=== PATIENT | female | born 1985 ===

== ENCOUNTER 2025-05-03 07:00 | Inpatient (IN) | payer OTHER ==
[~2025-05-03] VITALS: Ht 154.9 cm; Wt 57.6 kg
[2025-05-03 08:50] LABS: BASO % 0.7 % (0.1-1.2); EOS # 0.12 (0.04-0.54); EOS % 1.1 % (0.7-7.0); LYMPH # 1.65 (1.18-3.74); LYMPH % 15.8 % (19.3-53.1); MEAN PLATELET VOLUME 9.90 fl (9.4-12.4); MONO # 0.83 (0.24-0.82); MONO % 7.9 % (4.7-12.5); NEUT # 7.72 (1.56-6.13); NEUT % 73.9 % (34.0-71.1); RED CELL DISTRIBUTION WIDTH 14.8 % (11.6-14.4)
[2025-05-03] MEDS ORDERED: PRENATABS FA T1 EACH PO (08:55)
[2025-05-03 09:11] LABS: INR < 0.93
[2025-05-03 09:33] LABS: ALT/SGPT 23.0 U/L (12-78); AST/SGOT 17.0 U/L (15-37); BILIRUBIN TOTAL 0.34 mg/dL (0.3-1.2); BUN CREA RATIO 15.0 (7.0-25.0); CREATININE SERUM 0.62 mg/dL (0.55-1.02); GFR 108.31; GLOBULINA 4.5 G/DL (2.4-3.5); GLUCOSE FASTING 78.0 mg/dL (65-100); OSMOLALITY SERUM 279.0 MOSM/KG (275-295)
[2025-05-10 05:16] VITALS: BP 97/65
[2025-05-10] MEDS ORDERED: MACROBID 100 M100 MG PO (07:43)
[2025-05-10] MEDS ORDERED: CEFAZOLIN SODIUM 1,000 MG VIAL IV ONE (08:00)
[2025-05-10] MEDS ORDERED: RINGERS SOLUTION,LACTATED 1,000 ML IV SCH (08:15)
[2025-05-10 11:10] VITALS: BP 106/72; O2SAT 100
[2025-05-10] MEDS ORDERED: MORPHINE SULFATE 4 MG/ML VIAL IV SCH (13:00)
[2025-05-10 16:21] VITALS: BP 113/73
[2025-05-10 16:55] LABS: BASO % 0.3 % (0.1-1.2); EOS # 0.03 (0.04-0.54); EOS % 0.2 % (0.7-7.0); LYMPH # 1.15 (1.18-3.74); LYMPH % 7.6 % (19.3-53.1); MEAN PLATELET VOLUME 9.90 fl (9.4-12.4); MONO # 0.96 (0.24-0.82); MONO % 6.3 % (4.7-12.5); NEUT # 12.92 (1.56-6.13); NEUT % 85.1 % (34.0-71.1); RED CELL DISTRIBUTION WIDTH 14.4 % (11.6-14.4)
[2025-05-10] MEDS ORDERED: ACETAMINOPHEN 325 MG TABLET PO SCH (20:24)
[2025-05-10] MEDS ORDERED: OxyCODONE HCL 5 MG TABLET (ROXICODONE) PO SCH (20:24)
[2025-05-11] MEDS ORDERED: OxyCODONE HCL 5 MG TABLET (ROXICODONE) PO SCH
[2025-05-11 01:27] VITALS: BP 96/60
[2025-05-11] MEDS ORDERED: ACETAMINOPHEN 325 MG TABLET PO SCH (02:00)
[2025-05-11] MEDS ORDERED: SIMETHICONE 125 MG CAPSULE PO ONE (07:00)
[2025-05-11] MEDS ORDERED: DOCUSATE SODIUM 100MG CAP PO NR (07:00)
[2025-05-11 08:00] VITALS: BP 97/61
[2025-05-11 16:28] VITALS: BP 95/58
[2025-05-12 01:40] VITALS: BP 110/72
[2025-05-12 08:46] VITALS: BP 100/68
[2025-05-12] MEDS ORDERED: PNV,CALCIUM 72/IRON/FOLIC ACID 1 TAB TABLET PO SCH (09:00)
== END 2025-05-12 13:25 | disposition home or self-care (01) | DRG 785 ==
LOC: OB/GYN 05-10 06:06 → LDR 05-10 06:06 → OB/GYN 05-10 07:00 → O/R 05-10 07:48 → OB/GYN 05-10 10:02
PROVIDERS: ADMIT Specialist; ATTEND Specialist
PROC: 0UB70ZZ Excision of Bilateral Fallopian Tubes, Open Approach (ICD-10-PCS; 2025-05-10)
PROC: 4A1HXCZ Monitoring of Products of Conception, Cardiac Rate, External Approach (ICD-10-PCS; 2025-05-10)
PROC: 10D00Z1 Extraction of Products of Conception, Low, Open Approach (ICD-10-PCS; principal; 2025-05-10 07:00)
DX: O42.02 Full-term premature rupture of membranes, onset of labor within 24 hours of rupture (principal); O24.420 Gestational diabetes mellitus in childbirth, diet controlled; O34.211 Maternal care for low transverse scar from previous cesarean delivery; Z30.2 Encounter for sterilization; Z3A.38 38 weeks gestation of pregnancy; Z37.0 Single live birth